=== PATIENT | female | born 1975 | race Caucasian/White ===

== ENCOUNTER 2019-02-26 13:42 | Emergency (ER) | payer OTHER ==
[2019-02-26 14:12] VITALS: BP 130/80; PULSE 93; TEMP 98.2
--- NOTE | 2019-02-26 15:00 | PDOC ---
Documentation entered by Lisa Glover SCRIBE, acting as scribe for Nargis Paez DO. Nargis Paez DO: This documentation has been prepared by the Adalberto jean Maria, SCRIBE, under my direction and personally reviewed by me in its entirety. I confirm that the documentation accurately reflects all work, treatment, procedures, and medical decision making performed by me. History of Present Illness - General Chief Complaint: Ear Problem Stated Complaint: LEFT EAR CLOGGED Time Seen by Provider: 02/26/19 13:43 - History of Present Illness Initial Comments: 02/26/19 14:41 Patient is a 43 year old female with no significant PMH who presents to the ED with a left sided clogged ear. Pt states she went to Urgent Care for what she believed was food poisoning and was prescribed Zofran. Pt states she has ringing in her ear and has lost her hearing in her left ear. She also c/o of nasal congestion and cold like symptoms. Patient states she hasn't seen an ENT doctor for her symptoms. She denies recent nausea, vomiting, diarrhea or constipation. She denies recent dysuria, frequency, urgency or hematuria. She denies recent chest pain or shortness of breath. Allergies: NKDA Past surgical history: None reported. Past History - Past Medical History Allergies/Adverse Reactions: Allergies Allergy/AdvReac Type Severity Reaction Status Date / Time No Known Allergies Allergy Verified 08/30/15 17:17 Home Medications: Ambulatory Orders Alprazolam [Xanax] 0.5 mg PO TID 08/30/15 Cetirizine HCl [Zyrtec -] 10 mg PO DAILY 08/30/15 Lamotrigine [Lamictal] 400 mg PO DAILY 08/30/15 Oxycodone HCl/Acetaminophen [Percocet 5-325 mg Tablet] 1 - 2 tab PO Q6H PRN #15 tab MDD 6 08/30/15 Venlafaxine HCl [Effexor -] 300 mg PO DAILY 08/30/15 Fluticasone Prop 0.05% Nasal [Flonase -] 1 - 2 spray NS BID #1 spray.pump Guaifenesin [Mucinex] 600 mg PO BID #10 tab.er.12h 02/26/19 Sodium Chloride/Sodium Bicarb [Sinus Wash Squeeze Bottle Kit] 1 each NS BID #20 packet 02/26/19 COPD: No Psychiatric Problems: Yes (BIPOLAR) - Surgical History Appendectomy: Yes - Psycho Social/Smoking Cessation Hx Smoking History: Never smoked Have you smoked in the past 12 months: No Information on smoking cessation initiated: No Hx Alcohol Use: No Drug/Substance Use Hx: No Substance Use Type: Alcohol Review of Systems - Review of Systems Able to Perform ROS?: Yes Comments:: 02/26/19 14:43 GENERAL/CONSTITUTIONAL: No fever or chills. No weakness. HEAD, EYES, EARS, NOSE AND THROAT:+Ear Pain No change in vision. No sore throat. GASTROINTESTINAL: No nausea, vomiting, diarrhea or constipation. GENITOURINARY: No dysuria, frequency, or change in urination. CARDIOVASCULAR: No chest pain or shortness of breath. RESPIRATORY: No cough, wheezing, or hemoptysis. MUSCULOSKELETAL: No joint or muscle swelling or pain. No neck or back pain. SKIN: No rash NEUROLOGIC: No headache, vertigo, loss of consciousness, or change in strength/ sensation. ENDOCRINE: No increased thirst. No abnormal weight change. HEMATOLOGIC/LYMPHATIC: No anemia, easy bleeding, or history of blood clots. ALLERGIC/IMMUNOLOGIC: No hives or skin allergy. *Physical Exam - Vital Signs Last Vital Signs Temp Pulse Resp BP Pulse Ox 98.2 F 93 H 20 130/80 98 02/26/19 13:43 02/26/19 13:43 02/26/19 13:43 02/26/19 13:43 02/26/19 13:43 - Physical Exam General Appearance: Yes: Nourished, Appropriately Dressed. No: Apparent Distress HEENT: positive: EOMI, SAADIA, Normal Voice, TMs Normal, Nasal Congestion, Rhinorrhea, Hearing Grossly Normal, Other (post nasal gtt). negative: Pharyngeal Erythema, Tonsillar Exudate, Tonsillar Erythema, Sinus Tenderness, TM Bulging, TM Dull, TM Erythema Neck: positive: Supple Respiratory/Chest: positive: Lungs Clear, Normal Breath Sounds. negative: Respiratory Distress Cardiovascular: positive: Regular Rhythm, Regular Rate, S1, S2. negative: Edema Gastrointestinal/Abdominal: positive: Normal Bowel Sounds, Soft. negative: Guarding, Rebound, Tenderness Musculoskeletal: positive: Normal Inspection. negative: CVA Tenderness Extremity: positive: Normal Inspection, Normal Range of Motion. 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 intact, Fully Oriented, Alert, Normal Mood/ Affect, Normal Response, Motor Strength 07/04 Medical Decision Making - Medical Decision Making 02/26/19 14:52 a/p: 43yo female with L ear congestion and tinnitus -nasal congestion -suspect eustation tube dysfunction from nasal congestion and URI -no signs of otitis media, no tm effusion or fluid -recommend sinus rinses, nasal decongestants -discussed flight on thursday and how pressure on the plan may make her ear and face hurt more with the increased pressure -discussed follow up with PMD and also with ENT -pt neuro intact -afebrile -stable for dc to home Discharge - Discharge Information Problems reviewed: Yes Clinical Impression/Diagnosis: Eustachian tube disorder, Tinnitus, Clogged ear, URI (upper respiratory infection) Condition: Stable Disposition: HOME - Admission No - Additional Discharge Information Prescriptions: Fluticasone Prop 0.05% Nasal [Flonase -] 1 - 2 spray NS BID #1 spray.pump Guaifenesin [Mucinex] 600 mg PO BID #10 tab.er.12h Sodium Chloride/Sodium Bicarb [Sinus Wash Squeeze Bottle Kit] 1 each NS BID #20 packet - Follow up/Referral Referrals: Ryley Oliva MD [Staff Physician] - Facundo Gonzalez MD [Staff Physician] - Charla Perla [Staff Physician] - - Patient Discharge Instructions Patient Printed Discharge Instructions: DI for Eustachian Tube Dysfunction- Adult Additional Instructions: Please drink plenty of fluids. Please wash your nose out with the sinus rinse twice a day. Please take all medications as prescribed. Please return to the ED with any further concerns or complaints. Please follow up with the ENT and PMD this week. - Post Discharge Activity
== END 2019-02-26 15:16 | disposition home or self-care (01) ==
LOC: FER 13:42
DX: H93.8X2 Other specified disorders of left ear (principal); J06.9 Acute upper respiratory infection, unspecified; H93.12 Tinnitus, left ear; H69.92 Unspecified Eustachian tube disorder, left ear
CPT/HCPCS: 99281-25